=== PATIENT | female | born 1995 | race Two or more races ===

== ENCOUNTER 2019-09-30 13:23 | Emergency (ER) | payer OTHER ==
[~2019-09-30] VITALS: Ht 157.5 cm; Wt 81.6 kg
[2019-09-30] MEDS ORDERED: ALBUTEROL2.5 MG/3 M INH (14:12)
[2019-09-30 14:54] VITALS: BP 111/63
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
[2019-09-30] MEDS ORDERED: LIDODERM700 M1 TOPIC (15:15)
[2019-09-30] MEDS ORDERED: TYLENOL EXTRA500 MG ORAL (15:15)
[2019-09-30] MEDS ORDERED: Methocarbamol 500mg tab ORAL ONE (15:15)
[2019-09-30] MEDS ORDERED: ROBAXIN-750750 MG PO (15:15)
== END 2019-09-30 15:28 | disposition home or self-care (01) ==
LOC: EMR 15:25
DX: S39.012A Strain of muscle, fascia and tendon of lower back, initial encounter (principal); S16.1XXA Strain of muscle, fascia and tendon at neck level, initial encounter; V44.5XXA Car driver injured in collision with heavy transport vehicle or bus in traffic accident, initial encounter; Y92.411 Interstate highway as the place of occurrence of the external cause; Z91.011 Allergy to milk products; Z91.010 Allergy to peanuts; Z91.018 Allergy to other foods
CPT/HCPCS: 99282